=== PATIENT | female | born 1950 | race Caucasian/White ===

== ENCOUNTER → 2024-11-11 | Outpatient (CLI) | payer OTHER ==
[~2024-11-11] MED LIST: ATOR20 PO; Aspir 8181 MG PO; CALTRATE 600 +1 EACH PO; Daily Multiple1 EACH PO; ESTRTP VAG; LISI20 PO; MECL25 PO; PROG100 PO
[2024-11-11 11:22] LABS: Source, Urine Clean Catch
[2024-11-11 11:31] LABS: White Blood Cells, Urine 0-2 /hpf (0-5)
[2024-11-11 11:32] LABS: Red Blood Cells, Urine 0-2 /hpf (0-2)
== END ==
LOC: LAB 11:21 → LAB SHORT 11:21
PROVIDERS: Physician Assistant Medical
DX: R31.29 Other microscopic hematuria (principal); R82.90 Unspecified abnormal findings in urine
CPT/HCPCS: 81015